=== PATIENT | male | born 1990 | race African-American/Black ===

== ENCOUNTER 2020-12-08 17:08 | Emergency (ER) | payer OTHER ==
[~2020-12-08] VITALS: Ht 175.3 cm; Wt 60.0 kg
[2020-12-08] MEDS ORDERED: cefTRIAXone 500MG VIAL (J0696 PER 250MG) IM ONE (18:40)
[2020-12-08] MEDS ORDERED: LIDOCAINE 1% SDV 5ML VIAL DILUENT ONE (18:40)
[2020-12-08] MEDS ORDERED: DOXY100C37 PO (18:59)
[2020-12-08 19:08] VITALS: BP 120/62
[2020-12-08 19:36] LABS: CHLAMYDIA DNA AMPLIFICATION NEGATIVE (NEGATIVE); GC DNA AMPLIFICATION NEGATIVE (NEGATIVE)
== END 2020-12-08 19:32 | disposition home or self-care (01) ==
LOC: M ED 17:08
DX: N34.2 Other urethritis (principal); Z20.2 Contact with and (suspected) exposure to infections with a predominantly sexual mode of transmission
CPT/HCPCS: 81001; 87086; 87661; 96372; 99283; J0696

== ENCOUNTER 2021-04-17 03:04 | Emergency (ER) | payer OTHER ==
[~2021-04-17] VITALS: Ht 175.3 cm; Wt 78.6 kg
[~2021-04-17 03:04] MED LIST: DOXY1CAP62 PO
[2021-04-17 04:51] LABS: GC DNA AMPLIFICATION NEGATIVE (NEGATIVE)
[2021-04-17] MEDS ORDERED: BACI500O21 TOP (06:41)
[2021-04-17 06:56] VITALS: BP 126/82
== END 2021-04-17 07:09 | disposition home or self-care (01) ==
LOC: M ED 03:04
DX: S37.13XA Laceration of ureter, initial encounter (principal); X58.XXXA Exposure to other specified factors, initial encounter; Y92.89 Other specified places as the place of occurrence of the external cause